=== PATIENT | male | born 1965 | race Caucasian/White ===

== ENCOUNTER 2023-10-28 15:28 | Inpatient (IN) ==
[2023-10-28 15:52] LABS: ABS Basophils 0.1 10^3/uL (0.0-0.1); ABS Eosinophils 0.1 10^3/uL (0.0-0.5); ABS Lymphocytes 3.4 10^3/uL (1.0-4.8); ABS Monocytes 1.1 10^3/uL (0.0-1.1); ABS Neutrophils 6.1 10^3/uL (1.5-7.6); Eosinophil % 0.9 %; Hematocrit 43.6 % (38-53); Hemoglobin 15.3 g/dL (13.2-16.3); Lymphocyte % 31.6 %; Mean Corpuscular Hemoglobin 32.5 pg (27-33); Mean Corpuscular Hgb Conc 35.1 g/dL (31-36); Mean Corpuscular Volume 92.4 fL (80-97); Mean Platelet Volume 6.9 fL (7.5-11.2); Platelet Count 245 10^3/uL (150-450); Red Blood Count 4.72 10^6/uL (4.06-5.63); Red Cell Distribution Width 13.1 % (12-17); White Blood Count 10.8 10^3/uL (3.6-10.2)
[2023-10-28 16:05] LABS: INR 1.25 (0.83-1.13)
[2023-10-28 16:14] LABS: Albumin 4.4 g/dL (3.2-5.2); Albumin/Globulin Ratio 1.3 (1-3); Calcium 9.3 mg/dL (8.6-10.3); Creatinine, Serum 1.17 mg/dL (0.67-1.17); Globulin 3.3 g/dL (2-4); Potassium 4.1 mmol/L (3.5-5.0); Total Bilirubin 1.4 mg/dL (0.2-1.0); Total Protein 7.7 g/dL (6.4-8.9); eGFR CKD-EPI 71.4 (>60)
[2023-10-28 17:19] LABS: High Sensitivity Troponin 1 Hr 7634 pg/mL (<20)
[2023-10-28] MEDS: Heparin 5000 UNITS/ML 1 mL VIAL IV SCH (18:32)
[2023-10-28] MEDS: Heparin DRIP 25,000 UNITS BAG 25,000 UNITS/250 ML BAG IV SCH (18:34)
[2023-10-28 18:43] LABS: ABS Basophils 0.1 10^3/uL (0.0-0.1); ABS Eosinophils 0.1 10^3/uL (0.0-0.5); ABS Monocytes 1.2 10^3/uL (0.0-1.1); ABS Neutrophils 6.8 10^3/uL (1.5-7.6); Eosinophil % 0.8 %; Hematocrit 42.8 % (38-53); Hemoglobin 14.8 g/dL (13.2-16.3); Lymphocyte % 27.2 %; Mean Corpuscular Hemoglobin 31.7 pg (27-33); Mean Corpuscular Hgb Conc 34.5 g/dL (31-36); Mean Corpuscular Volume 91.7 fL (80-97); Mean Platelet Volume 6.9 fL (7.5-11.2); Platelet Count 226 10^3/uL (150-450); Red Blood Count 4.67 10^6/uL (4.06-5.63); Red Cell Distribution Width 13.1 % (12-17); White Blood Count 11.2 10^3/uL (3.6-10.2)
[2023-10-28 18:59] LABS: Creatinine, Serum 0.99 mg/dL (0.67-1.17); eGFR CKD-EPI 87.2 (>60)
[2023-10-28] MEDS ORDERED: fentaNYL 100 mcg/2 ml 50 MCG/ML VIAL ONE (19:48)
[2023-10-28] MEDS ORDERED: Midazolam 5 mg/5 ml VIAL 1 mg/ml 5 ml VIAL (5 mg) ONE (19:48)
[2023-10-28] MEDS ORDERED: Heparin 2 UNITS/ML 1000 mls 2,000 ML IV ONE (19:49)
[2023-10-28] MEDS ORDERED: nitroGLYCERIN DRIP 25,000 MCG/250 ML BTL ONE (19:49)
[2023-10-28] MEDS ORDERED: Heparin 1,000 UNIT/ML 10 ml (10,000 UNITS) CATHLAB/DIALYSIS ONE (19:49)
[2023-10-28] MEDS ORDERED: Lidocaine 1% MPF 5 ML VIAL ONE (19:49)
[2023-10-28] MEDS ORDERED: Iohexol 350 (CONTRAST) 200 ML MDV IV ONE (19:49)
[2023-10-28] MEDS ORDERED: VERAPAMIL 2.5 MG/ML 2 ML VIAL ** 5 mg/2 ml ONE (19:49)
[2023-10-28] MEDS: fentaNYL 100 mcg/2 ml 50 MCG/ML VIAL IV SLOW PU ONE (20:27)
[2023-10-28] MEDS: NS 0.9% 1000 ml BAG 1,000 ML IV SCH (20:28)
[2023-10-28] MEDS: Midazolam 10 mg/10 ml VIAL 1 mg/ml 10 ml VIAL (10 mg) IV SLOW PU ONE (20:28)
[2023-10-28] MEDS ORDERED: Iohexol 350 (CONTRAST) 100 ML PAK IV ONE (20:29)
[2023-10-28] MEDS: Metoprolol Tartrate 5 mg VIAL 5 ml VIAL (1 mg/ml) IV ONE (23:36)
[2023-10-29 04:09] VITALS: BP 119/80
== END 2023-10-29 05:05 | disposition short-term general hospital (02) | DRG 190 ==
LOC: ED 15:28 → ICU 21:10
PROVIDERS: ADMIT Internal Medicine; ATTEND Internal Medicine